=== PATIENT | female | born 2000 | race Caucasian/White ===

== ENCOUNTER → 2024-12-30 | Outpatient (REF) | payer OTHER ==
[~2024-12-30] MED LIST: DOXY100T; METR-265 PO
[2024-12-30 21:06] LABS: GC DNA AMPLIFICATION NEGATIVE (NEGATIVE)
== END ==
LOC: M LAB REF 17:06
PROVIDERS: ATTEND Nurse Practitioner Adult Health
DX: N89.8 Other specified noninflammatory disorders of vagina (principal); Z11.3 Encounter for screening for infections with a predominantly sexual mode of transmission

== ENCOUNTER 2025-01-03 15:12 | Emergency (ER) | payer OTHER ==
[~2025-01-03] VITALS: Ht 165.1 cm; Wt 63.6 kg
[2025-01-03] MEDS ORDERED: DOXY100T (17:32)
[2025-01-03 19:07] LABS: KETONE, URINE AUTO RFX TRACE mg/dL (NEGATIVE); LEUKOCYTE ESTERASE UR AUTO RFX NEGATIVE (NEGATIVE); MUCUS, URINE RFX SMALL (NEGATIVE); NITRITE, URINE AUTO RFX NEGATIVE (NEGATIVE); RBC, URINE AUTO RFX 1 /HPF (0-3); SQUAM EPITHELIAL CELL UR AURFX 11 /HPF (0-6); WBC, URINE AUTO RFX 4 /HPF (0-3)
[2025-01-03 20:03] LABS: Trichomonas vaginalis (AMP) NOT DETECTED (NEGATIVE)
[2025-01-03 20:27] LABS: GC DNA AMPLIFICATION NEGATIVE (NEGATIVE)
[2025-01-03] MEDS ORDERED: METR-265 PO (20:34)
[2025-01-03 20:51] VITALS: BP 107/68; TEMP 97.3; O2SAT 97
== END 2025-01-03 20:53 | disposition home or self-care (01) ==
LOC: M ED 15:12
DX: R10.2 Pelvic and perineal pain (principal); Z91.018 Allergy to other foods; Z79.2 Long term (current) use of antibiotics

== ENCOUNTER 2025-03-10 13:51 | Emergency (ER) | payer OTHER ==
[~2025-03-10] VITALS: Ht 165.1 cm; Wt 63.9 kg
[2025-03-10 13:55] VITALS: BP 114/59; TEMP 99.1; O2SAT 100
== END 2025-03-10 14:35 | disposition left against medical advice (07) ==
LOC: M ED 13:51
DX: Z53.21 Procedure and treatment not carried out due to patient leaving prior to being seen by health care provider (principal)